=== PATIENT | female | born 1945 | race Caucasian/White ===

== ENCOUNTER 2017-10-06 13:47 | Emergency (ER) | payer MEDICARE ==
[~2017-10-06] VITALS: Ht 160 cm; Wt 84.3 kg
[~2017-10-06 13:47] MED LIST: ALEN70TA3 PO; ASPI-920 PO; CLOP75TA15 PO; NAPR-1154 PO; ONDA4TAB6 PO; SIMV20TA5 PO
[2017-10-06 13:59] VITALS: BP 151/109
== END 2017-10-06 16:40 | disposition home or self-care (01) ==
LOC: ER 13:48
DX: M79.89 Other specified soft tissue disorders (principal); M19.90 Unspecified osteoarthritis, unspecified site; Z86.73 Personal history of transient ischemic attack (TIA), and cerebral infarction without residual deficits; Z88.0 Allergy status to penicillin; Z88.1 Allergy status to other antibiotic agents; Z88.5 Allergy status to narcotic agent; Z88.6 Allergy status to analgesic agent; Z88.8 Allergy status to other drugs, medicaments and biological substances; Z85.3 Personal history of malignant neoplasm of breast
CPT/HCPCS: 93971; 99284

== ENCOUNTER 2020-04-12 20:20 | Emergency (ER) | payer MEDICARE ==
[~2020-04-12] VITALS: Ht 160 cm; Wt 81.6 kg
[~2020-04-12 20:20] MED LIST changes: +SIMV-42 PO; -SIMV20TA5 PO
--- NOTE | 2020-04-12 20:34 | NUR ---
pt arrived in room and then went straight to CT
--- NOTE | 2020-04-12 20:35 | NUR ---
pt states she fell an hour and a half ago. She denies neck pain or HADDAD
--- NOTE | 2020-04-12 21:05 | NUR ---
Trauma alert called off by MD Joseph.
[2020-04-12] MEDS ORDERED: acetaminophen 325mg tablet PO ONE (21:20)
[2020-04-12 21:28] VITALS: BP 144/83
== END 2020-04-12 21:31 | disposition home or self-care (01) ==
LOC: ER 20:21
DX: S00.93XA Contusion of unspecified part of head, initial encounter (principal); M19.90 Unspecified osteoarthritis, unspecified site; Z85.9 Personal history of malignant neoplasm, unspecified; Z86.73 Personal history of transient ischemic attack (TIA), and cerebral infarction without residual deficits; Z98.890 Other specified postprocedural states; Z88.0 Allergy status to penicillin; Z88.5 Allergy status to narcotic agent; Z88.8 Allergy status to other drugs, medicaments and biological substances; Z79.82 Long term (current) use of aspirin; Z79.899 Other long term (current) drug therapy; W19.XXXA Unspecified fall, initial encounter; Y93.89 Activity, other specified; Y92.89 Other specified places as the place of occurrence of the external cause; Y99.8 Other external cause status
CPT/HCPCS: 70450; 99284